=== PATIENT | male | born 1995 | race Caucasian/White ===

== ENCOUNTER 2023-10-27 23:55 | Emergency (ER) | payer OTHER ==
[~2023-10-27] VITALS: Ht 193 cm; Wt 93.0 kg
[2023-10-28 00:49] VITALS: BP 118/86; TEMP 98.7
[2023-10-28] MEDS ORDERED: predniSONE 20 MG TABLET ONE (01:34)
[2023-10-28] MEDS: predniSONE 50 MG TABLET PO ONE (01:36)
[2023-10-28] MEDS: ALBUTEROL FS 2.5 MG/3 ML VIAL.NEB CONTNEB ONE (01:41)
[2023-10-28] MEDS ORDERED: ALBU8.5H8 IH (01:42)
[2023-10-28] MEDS ORDERED: PRED50TA PO (01:42)
[2023-10-28 01:43] VITALS: O2SAT 93
[2023-10-28] MEDS ORDERED: ALBUTEROL FS 2.5 MG/3 ML VIAL.NEB ONE (01:44)
== END 2023-10-28 02:14 | disposition home or self-care (01) ==
LOC: ER 10-28
DX: J45.909 Unspecified asthma, uncomplicated (principal); Z79.899 Other long term (current) drug therapy
CPT/HCPCS: 99283; 94640; J7512